=== PATIENT | male | born 1975 | race Caucasian/White ===

== ENCOUNTER 2016-10-06 17:18 | Emergency (ER) | payer OTHER ==
[~2016-10-06] VITALS: Wt 98.4 kg
[~2016-10-06 17:18] MED LIST: MEDROL DOSEPAK4 MG PO; NAPROSYN500 MG PO; PREDNICOT20 MG PO; TRAMADOL HCL50 MG PO; VICODIN 5/500 505 MG PO
[2016-10-06 17:21] VITALS: BP 140/91
[2016-10-06] MEDS ORDERED: LIDEX 0.05% CRE15 GM T (17:27)
== END 2016-10-06 17:49 | disposition home or self-care (01) ==
LOC: ED 17:18
DX: S10.96XA Insect bite of unspecified part of neck, initial encounter (principal); R03.0 Elevated blood-pressure reading, without diagnosis of hypertension; W57.XXXA Bitten or stung by nonvenomous insect and other nonvenomous arthropods, initial encounter; Y93.89 Activity, other specified; Y92.9 Unspecified place or not applicable; Y99.9 Unspecified external cause status

== ENCOUNTER 2016-10-28 22:23 | Emergency (ER) | payer OTHER ==
[~2016-10-28 22:23] MED LIST changes: +LIDEX 0.05% CRE15 GM T
[2016-10-28 22:45] LABS: BASO # 0.1 10*3/uL (0.0-0.1); BASO % 0.7 % (0.0-1.0); EOS # 0.2 10*3/uL (0.0-0.4); EOS % 1.5 % (1.0-4.0); HEMOGLOBIN 14.8 g/dl (14.0-18.0); LYMPH # 3.1 10*3/uL (1.3-4.4); LYMPH % 27.3 % (27.0-41.0); MEAN CELL VOLUME 92.1 fl (80.0-94.0); MEAN CORPUSCULAR HGB CONC 33.6 g/dl (33.0-37.0); MONO # 0.8 10*3/uL (0.1-1.0); MONO % 6.8 % (3.0-9.0); NEUT # 7.2 10*3/uL (2.3-7.9); NEUT % 63.2 % (47.0-73.0); PLATELET COUNT AUTOMATED 256 10*3/uL (130-400); RED BLOOD COUNT 4.78 10*6/uL (4.50-5.90); RED CELL DISTRI WIDTH 13.2 % (0-14.5); WHITE BLOOD COUNT 11.4 10*3/uL (4.8-10.8)
[2016-10-28 22:53] VITALS: BP 150/90
[2016-10-28 23:01] LABS: ALBUMIN 3.9 gm/dl (3.1-4.5); ALKALINE PHOSPHATASE 86 U/L (45-117); BUN 14 mg/dl (7-24); CHLORIDE 104 mmol/L (98-107); CREATININE 1.01 mg/dL (0.70-1.30); POTASSIUM 4.4 mmol/L (3.5-5.1); SGOT/AST 25 IU/L (3-35); SGPT/ALT 37 U/L (12-78); SODIUM 141 mmol/L (136-145); TOTAL PROTEIN 8.2 gm/dL (6.4-8.2)
[2016-10-28] MEDS ORDERED: CLARITIN10 MG PO (23:04)
[2016-10-28] MEDS ORDERED: PREDNISONE10 MG PO (23:04)
[2016-10-28] MEDS ORDERED: ROBITUSSIN DM 105 ML PO (23:04)
[2016-10-28] MEDS ORDERED: FLONASE ALLERG9.9 ML NAS (23:04)
== END 2016-10-28 23:33 | disposition home or self-care (01) ==
LOC: ED 22:23
PROVIDERS: Nurse Practitioner Family
DX: B34.9 Viral infection, unspecified (principal); R03.0 Elevated blood-pressure reading, without diagnosis of hypertension

== ENCOUNTER 2018-05-14 19:03 | Emergency (ER) | payer SELFPAY ==
[~2018-05-14] VITALS: Ht 180.3 cm; Wt 97.5 kg
[~2018-05-14 19:03] MED LIST changes: +CLARITIN10 MG PO; +FLONASE ALLERG9.9 ML NAS; +PREDNISONE10 MG PO; +ROBITUSSIN DM 105 ML PO
[2018-05-14 19:07] VITALS: BP 149/93
[2018-05-14 20:09] LABS: BASO # 0.1 10*3/uL (0.0-0.1); BASO % 0.5 % (0.0-1.0); EOS # 0.1 10*3/uL (0.0-0.4); EOS % 0.4 % (1.0-4.0); HEMATOCRIT 44.5 % (42.0-52.0); HEMOGLOBIN 14.6 g/dl (14.0-18.0); LYMPH # 1.9 10*3/uL (1.3-4.4); LYMPH % 11.7 % (27.0-41.0); MEAN CELL VOLUME 91.9 fl (80.0-94.0); MEAN CORPUSCULAR HGB 30.2 pg (27.0-31.0); MEAN CORPUSCULAR HGB CONC 32.8 g/dl (33.0-37.0); MEAN PLATELET VOLUME 12.6 fl (9.6-12.3); MONO # 1.2 10*3/uL (0.1-1.0); NEUT # 13.1 10*3/uL (2.3-7.9); PLATELET COUNT AUTOMATED 215 10*3/uL (130-400); RED BLOOD COUNT 4.84 10*6/uL (4.50-5.90); RED CELL DISTRI WIDTH 13.1 % (0-14.5); WHITE BLOOD COUNT 16.4 10*3/uL (4.8-10.8)
[2018-05-14 20:14] LABS: BILIRUBIN NEGATIVE (NEGATIVE); BLOOD TRACE-LYSED (NEGATIVE); CLARITY CLEAR (CLEAR); COLOR YELLOW (YELLOW); GLUCOSE NEGATIVE (NEGATIVE); KETONE NEGATIVE (NEGATIVE); LEUKO ESTERASE NEGATIVE (NEGATIVE); NITRITE NEGATIVE (NEGATIVE); PH 5.5 (5.0-9.0); SPECIFIC GRAVITY 1.025 (1.005-1.030); UROBILINOGEN 0.2 E.U./dl (0.2-1.0)
[2018-05-14 20:23] LABS: BACTERIA TRACE; MUCOUS 1+; RBC 0-2 rbc/hpf (0-2); WBC 0-2 wbc/hpf (0-5)
[2018-05-14 20:32] LABS: ALKALINE PHOSPHATASE 77 U/L (45-117); BUN 20 mg/dl (7-24); CHLORIDE 100 mmol/L (98-107); CREATININE 0.93 mg/dL (0.70-1.30); LIPASE 135 U/L (73-393); POTASSIUM 3.6 mmol/L (3.5-5.1); SGOT/AST 10 IU/L (3-35); SGPT/ALT 21 U/L (12-78); SODIUM 135 mmol/L (136-145); TOTAL PROTEIN 8.6 gm/dL (6.4-8.2)
[2018-05-14] MEDS ORDERED: CIPRO500 MG PO (23:10)
[2018-05-14] MEDS ORDERED: FLAGYL500 MG PO (23:10)
== END 2018-05-15 00:17 | disposition home or self-care (01) ==
LOC: ED 19:03
PROVIDERS: Student in an Organized Health Care Education/Training Program
DX: K57.92 Diverticulitis of intestine, part unspecified, without perforation or abscess without bleeding (principal)

== ENCOUNTER 2024-07-29 16:39 | Emergency (ER) | payer OTHER ==
[~2024-07-29] VITALS: Ht 180.3 cm; Wt 97.5 kg
[~2024-07-29 16:39] MED LIST changes: +CIPRO500 MG PO; +DOXYCYCLINE HY100 M3 PO; +FLAGYL500 MG PO
[2024-07-29 16:56] VITALS: BP 154/95
[2024-07-29] MEDS ORDERED: CEPHALEXIN500 M1 PO (17:23)
[2024-07-29] MEDS ORDERED: Gelatin Sponge 1 EACH SPON T ONE (17:25)
[2024-07-29] MEDS ORDERED: Tdap Vaccine 0.5 ML SYR (Adult Vaccine) IM ONE (17:25)
[2024-07-29] MEDS ORDERED: CEPHALEXIN 500 MG CAP PO ONE (17:25)
== END 2024-07-29 18:42 | disposition home or self-care (01) ==
LOC: ED 16:39
DX: S61.214A Laceration without foreign body of right ring finger without damage to nail, initial encounter (principal); I10 Essential (primary) hypertension; J45.909 Unspecified asthma, uncomplicated; Z79.899 Other long term (current) drug therapy; W20.8XXA Other cause of strike by thrown, projected or falling object, initial encounter; Y93.89 Activity, other specified; Y92.89 Other specified places as the place of occurrence of the external cause; Y99.0 Civilian activity done for income or pay